=== PATIENT | female | born 1990 | race Caucasian/White ===

== ENCOUNTER 2023-09-19 06:27 | Emergency (ER) | payer BC, SELFPAY ==
[2023-09-19 06:28] VITALS: BP 136/90
--- NOTE | 2023-09-19 08:13 | ED.GENMED ---
History of Present Illness
General
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
Source: patient
Exam Limitations: none
Time Seen by Provider: 09/19/23 07:44
Travel History
Have you had any contact with someone who has COVID-19?: No
Do you have any symptoms of coronavirus? Fever > 100 degrees, chills, cough, shortness of breath, sore throat, loss of taste or smell, muscle aches, or headache?: No
History of Present Illness
History of Present Illness:
33-year-old female presents with increasing swelling to the right vulvar region over the past several days. She has a history of Bartholin cysts which have required drainage in the past. She feels the need at this time. She was vomiting overnight
but denies any further vomiting here or nausea. No fever. She is not diabetic. No other complaints at this time
Past History
Past History
ED Past Medical History: None
ED Past Surgical History: None
Social History
Tobacco: Non-smoker
Phy Exam
Physical Exam
Physical Exam:
General: Well-appearing female no acute respiratory distress
HEENT: Normocephalic atraumatic
Skin: Please note entire physical was performed with female cheese sprayer in the room. The right posterior inferior labial region with erythema fluctuance. There is a sinus tract with any drainage. This is from prior incision and drainage.
Course
Vital Signs
Initial and Last Documented VS:
Initial Vital Signs
Temp Pulse Resp BP Pulse Ox
98.1 F 106 18 136/90 98
09/19/23 06:28 09/19/23 06:28 09/19/23 06:28 09/19/23 06:28 09/19/23 06:28
Last Documented Vital Signs
Temp Pulse Resp BP Pulse Ox
98.1 F 106 18 136/90 98
09/19/23 06:28 09/19/23 06:28 09/19/23 06:28 09/19/23 06:28 09/19/23 06:28
MDM/Problems Addressed
Differential Diagnosis Includes:
Exam most consistent with abscess versus Bartholin cyst.
Vital signs stable. Do not suspect systemic infection.
With female cheese sprayer in the room the area was draped and prepped. The area was cleansed with saline anesthetized 1% plain lidocaine. Once adequate anesthesia was provided an 11 blade scalpel was used to provide incision and drainage. There is a
large amount of purulent material expressed from the wound. Loculations were broken up with needle regional tanker truck driver. The area was irrigated with saline and a gauze dressing was applied on top. Patient be started on Bactrim. Stable for discharge
*Critical Care Note
Total Time (30-74mins, 75-104mins- exclusive of procedures): Not Applicable
ED Attending Note
-
Portions of this chart may have been created with voice recognition software.� Occasional wrong word or��sound alike� substitutions may have occurred due to the inherent limitations of voice recognition software.
Discharge Plan
Departure
Patient Disposition: Home (Routine Discharge)
Date of Disposition: 09/19/23
Time of Disposition: 08:16
Patient with high blood pressure during this ER visit?: No
Discharge Problem:
Bartholin cyst
Prescriptions:
New
sulfamethoxazole-trimethoprim [Bactrim DS] 800-160 mg tablet
1 tab PO BID Qty: 14 0RF
No Action
hydrocodone-acetaminophen [Vicodin] 1 EACH tablet
1 ea PO Q6HPRN PRN (Reason: pain) Qty: 7 0RF
sulfamethoxazole-trimethoprim 1 TABLET tablet
1 tab PO BID Qty: 10 1RF
Referrals:
NONE,* [Family Provider] -
Activity Restrictions/Additional Instructions:
Continue with warm soaks. Take antibiotics as directed peer return if worse otherwise follow-up with your shoe trimmer
Interventions
Interventions:
*Risk Screen - Suicide Last Done: 09/19/23 06:28
*Neglect/Abuse Screening Last Done: 09/19/23 06:28
== END 2023-09-19 08:20 | disposition home or self-care (01) ==
LOC: EMR 06:27
PROVIDERS: EMERGENCY PHYSICIAN Emergency Medicine
DX: N75.0 Cyst of Bartholin's gland (principal)
CPT/HCPCS: 99283; 56420

== ENCOUNTER 2023-10-24 21:07 | Emergency (ER) | payer BC, SELFPAY ==
[2023-10-24 21:14] VITALS: BP 122/78
[2023-10-24 22:02] VITALS: BMI 29.3
[2023-10-24] MEDS: ZOFRAN 4 MG IV (22:34)
[2023-10-24 22:43] VITALS: BP 116/76
[2023-10-24 22:45] LABS: % Basophils 0.5 % (0-2); % Eosinophils 3.1 % (0-6); % Immature Granulocytes 0.1 % (0-0.5); % Lymphocytes 36.3 % (20.5-51.1); % Monocytes 4.9 % (1.7-9.3); % Neutrophils 55.1 % (42.2-75.2); Absolute Eosinophils 0.2 10^3/uL (0-0.7); Absolute Lymphocytes 2.8 10^3/uL (1.2-3.4); Absolute Monocytes 0.4 10^3/uL (0.1-0.6); Absolute Neutrophils 4.3 10^3/uL (1.4-6.5); Hematocrit 39.4 % (37.0-47.0); Hemoglobin 13.9 g/dL (12.0-16.0); Mean Corp Hgb Conc. 35.3 g/dL (33.0-37.0); Mean Corpuscular Hgb 31.2 pg (27.0-31.0); Mean Corpuscular Volume 88.3 fL (81.0-99.0); Mean Platelet Volume 11.6 fL (7.4-10.4); Nucleated Red Blood Cells % 0 %; Platelet Count 343 10^3/uL (130-400); Red Blood Cell Count 4.46 10^6/uL (4.20-5.40); Red Cell Dist. Width 11.9 % (11.5-14.5); White Blood Cell Count 7.8 10^3/uL (4.8-10.8)
[2023-10-24 22:58] LABS: HCG, Serum Qualitative Screen Negative
[2023-10-24 23:04] LABS: ALT (SGPT) 15 U/L (0-35); AST (SGOT) 32 U/L (14-36); Alkaline Phosphatase 47 U/L (38-126); Blood Urea Nitrogen 9 mg/dl (7-17); Carbon Dioxide 22 mmol/L (22-30); Chloride 103 mmol/L (98-107); Estimated Creatinine Clearance > 125 ml/min; Glucose 92 mg/dl (70-99); Lipase 52 U/L (23-300); Sodium 134 mmol/L (135-145); Total Bilirubin 0.9 mg/dl (0.2-1.3); Total Protein 7.4 g/dl (6.3-8.2); eGFR > 60.00
--- NOTE | 2023-10-24 23:16 | ED.GENMED ---
History of Present Illness
General
Chief Complaint: Bowel Problem
Source: patient
Exam Limitations: none
Time Seen by Provider: 10/24/23 21:53
Nursing documentation reviewed up to this point in time: agreed with
Travel History
Have you had any contact with someone who has COVID-19?: No
Do you have any symptoms of coronavirus? Fever > 100 degrees, chills, cough, shortness of breath, sore throat, loss of taste or smell, muscle aches, or headache?: No
History of Present Illness
History of Present Illness:
Patient to ED wtih concern of bowel blockage. No prior history. Reports poor appetite since monday. Had vomiting yesterday and today. Denies fever/chills. Brought self to ED for eval.
Past History
Past History
ED Past Medical History: Other (psoriasis)
ED Past Surgical History: None
Social History
Tobacco: Non-smoker
Review of Systems
Review of Systems
Allergies reviewed?: Yes
All Other Systems: ROS reviewed and negative except as documented in HPI and ROS
Constitutional: Reports no symptoms
EENT: Reports no symptoms
Respiratory: Reports no symptoms
Cardiac: Reports no symptoms
ABD/GI: Reports nausea and vomiting
: Reports no symptoms
Musculoskeletal: Reports no symptoms
Skin: Reports no symptoms
Neurological: Reports no symptoms
Psychiatric: Reports no symptoms
Phy Exam
General Physical Exam
General Presentation: well appearing and no apparent distress
General age: appears stated age
General Skin: warm and dry
General Habitus: normal
General Mental: alert
Cardiovascular Exam
Cardiovascular Exam: regular rate/rhythm and no edema
Pulmonary Exam
Pulmonary Exam: lungs clear and no respiratory distress
Gastrointestinal Exam
Gastrointestinal Exam: normal bowel sounds, non tender, soft, no organomegaly, no pulsatile mass, non distended and no cva tenderness
Musculoskeletal Exam
Musculoskeletal Exam: full ROM and neuro vasc intact
Skin Exam
Skin Exam: normal color, warm/dry and no rash
Psychiatric Exam
Psychiatric Exam: normal mood/affect
Course
Orders/Labs/Results
Orders:
Orders
10/24/23 21:56
CR Abdomen - 1 View Urgent
Comment:
Reason For Exam: constipation
10/24/23 21:57
Urinalysis Reflex To Culture Urgent
Test Result ONCE
10/24/23 21:58
Ondansetron Injectable [Zofran] 4 mg IV NOW STA
10/24/23 22:39
Complete Blood Count/With Diff Urgent
Comprehensive Metabolic Panel Urgent
HCG, Serum Qualitative Screen Urgent
Lipase Urgent
Abnormal Lab Results
10/24/23
22:39
MCH 31.2 H pg
(27.0-31.0)
MPV 11.6 H fL
(7.4-10.4)
Sodium 134 L mmol/L
(135-145)
10/24/23 22:39
10/24/23 22:39
Vital Signs
Initial and Last Documented VS:
Initial Vital Signs
Temp Pulse Resp BP Pulse Ox
98.3 F 76 18 122/78 97
10/24/23 21:14 10/24/23 21:14 10/24/23 21:14 10/24/23 21:14 10/24/23 21:14
Last Documented Vital Signs
Temp Pulse Resp BP Pulse Ox
98.3 F 65 20 116/76 99
10/24/23 21:14 10/24/23 22:43 10/24/23 22:43 10/24/23 22:43 10/24/23 22:43
*Radiology
Radiology exam reviewed: radiology read reviewed
*Pulse Oximetry
Patient hypoxic: no
ED Attending Note
-
Portions of this chart may have been created with voice recognition software.� Occasional wrong word or��sound alike� substitutions may have occurred due to the inherent limitations of voice recognition software.
Discharge Plan
Departure
Patient with high blood pressure during this ER visit?: No
Condition: Good
Covid-19: Not Applicable
Discharge Problem:
Nausea & vomiting
Instructions: Nausea and Vomiting, Adult (DC)
Prescriptions:
No Action
No Current Medications
0
Referrals:
Chloe Rouse PA [Family Provider] - Tomorrow
Interventions
Interventions:
*Risk Screen - Suicide Last Done: 10/24/23 22:02
*General Assessment Last Done: 10/24/23 22:02
*Neglect/Abuse Screening Last Done: 10/24/23 22:02
ED- Fall Risk Assessment Last Done: 10/24/23 22:02
*ED COVID-19 Vaccine History Last Done: 10/24/23 22:02
OV-Nqrnws-Nnqtrsoqrj Assessment Last Done: 10/24/23 22:02
[2023-10-24 23:56] VITALS: BP 116/76
[2023-10-25 00:09] LABS: Urine Albumin Negative (Neg - Trace); Urine Bilirubin Negative (Negative); Urine Character Clear (Clear); Urine Color Yellow; Urine Glucose Negative (Negative); Urine Ketone 2+ (Negative); Urine Leukocyte Negative (Negative); Urine Nitrite Negative (Negative); Urine Occult Blood 3+ (Negative); Urine Urobilinogen Negative (Neg - 1+)
[2023-10-25 00:39] LABS: Urine Squamous Cell >30 /LPF (Few); Urine White Cell 0-2 /HPF (0-5)
[2023-10-25 00:40] LABS: Urine Bacteria Moderate (Negative)
[2023-10-25 00:53] VITALS: BP 113/76
== END 2023-10-25 01:04 | disposition home or self-care (01) ==
LOC: EMR 21:07
PROVIDERS: Nurse Practitioner; EMERGENCY PHYSICIAN Emergency Medicine; FAMILY PHYSICIAN Physician Assistant Medical
DX: R11.2 Nausea with vomiting, unspecified (principal)
CPT/HCPCS: 99284; 96374; 74018; 80053; 81003; 81015; 83690; 84703; 85025; 87086